=== PATIENT | female | born 1945 | race Caucasian/White ===

== ENCOUNTER 2021-04-27 09:18 | Emergency (ER) | payer BC, MEDICARE ==
[~2021-04-27 09:18] MED LIST: BACTRIM DS TAB1 EACH PO; ZOFRAN ODT 4 MG4 MG SL
[2021-04-27] MEDS ORDERED: MACRODANTIN100 MG PO (10:40)
[2021-04-27] MEDS ORDERED: ZOFRAN ODT 4 MG4 MG PO (10:45)
[2021-04-27] MEDS ORDERED: BENTYL 10MG CAP10 MG PO (10:45)
== END 2021-04-27 10:53 | disposition home or self-care (01) ==
LOC: ER1 09:18
DX: N39.0 Urinary tract infection, site not specified (principal); B95.2 Enterococcus as the cause of diseases classified elsewhere; E78.5 Hyperlipidemia, unspecified
CPT/HCPCS: 81001; 87086; 99283

== ENCOUNTER → 2021-08-17 | Outpatient (CLI) | payer OTHER, MEDICARE ==
[~2021-08-17] MED LIST changes: +BENTYL 10MG CAP10 MG PO; +MACRODANTIN100 MG PO; +ZOFRAN ODT 4 MG4 MG PO
[2021-08-17 11:22] LABS: HEMOGLOBIN 14.8 gm/dl (12.3-15.3); RED BLOOD COUNT 4.98 M/UL (4.00-5.10); WHITE BLOOD COUNT 6.4 K/UL (4.5-11.0)
[2021-08-18 08:13] LABS: A/G RATIO 1.8 (1.2-2.2); BILIRUBIN, TOTAL 0.4 mg/dL (0.0-1.2); CALCIUM, SERUM 9.2 mg/dL (8.7-10.3); CREATININE, SERUM 0.88 mg/dL (0.57-1.00); GLOBULIN, TOTAL 2.5 g/dL (1.5-4.5); POTASSIUM, SERUM 4.3 mmol/L (3.5-5.2); PROTEIN, TOTAL, SERUM 7.1 g/dL (6.0-8.5)
== END ==
LOC: LAB 10:21
PROVIDERS: Nurse Practitioner Family
DX: K21.9 Gastro-esophageal reflux disease without esophagitis (principal); M54.9 Dorsalgia, unspecified; J01.00 Acute maxillary sinusitis, unspecified; R05.9 Cough, unspecified; R06.02 Shortness of breath
CPT/HCPCS: 36415; 80053; 85025; 85379

== ENCOUNTER → 2021-08-17 | Outpatient (CLI) | payer OTHER, MEDICARE | LOC: EXRD 09:48 | DX: R06.02 Shortness of breath (principal) | CPT/HCPCS: 71046 ==